=== PATIENT | female | born 1980 | race Caucasian/White ===

== ENCOUNTER 2016-09-18 09:41 | Inpatient (IN) | payer MEDICAID ==
[2016-09-18] VITALS (24 sets, daily range): BP systolic 98–115; BP diastolic 56–69; PULSE 69–88; RESP 16–18; TEMP 97.7–98.1; O2SAT 98–100
[~2016-09-18 09:41] MED LIST: ABRE10CR TOP; DOCO1CAP2; FAMC500T23 PO; IBUP600 PO; OXYC1SOL5 PO; PERI8.6T PO; PREN1TAB30
[2016-09-18] MEDS ORDERED: LACTATED RINGER'S 1000 ML INJ 1,000 ML IV ONE (10:28)
[2016-09-18 10:41] LABS: AUTOMATED NEUTROPHIL # 9.4 TH/MM3 (1.8-7.7); BASOPHIL # 0.1 TH/MM3 (0-0.2); BASOPHIL % 0.4 % (0.0-2.0); EOSINOPHIL % 0.3 % (0.0-4.0); HEMATOCRIT 36.5 % (35.0-46.0); HEMO FLAGS DIFF FINAL; LYMPH % 20.2 % (9.0-44.0); LYMPHOCYTE # 2.6 TH/MM3 (1.0-4.8); MEAN CELL VOLUME 85.4 FL (80.0-100.0); MEAN CORPUSCULAR HEMOGLOBIN 28.4 PG (27.0-34.0); MEAN CORPUSCULAR HGB CONC 33.3 % (32.0-36.0); MONO % 5.8 % (0.0-8.0); NEUT % 73.3 % (16.0-70.0); PLATELET COUNT 203 TH/MM3 (150-450); RED BLOOD COUNT 4.28 MIL/MM3 (4.00-5.30); RED CELL DISTRIBUTION WIDTH 14.4 % (11.6-17.2); WHITE BLOOD COUNT 12.8 TH/MM3 (4.0-11.0)
[2016-09-18 10:42] LABS: BLOOD, URINE NEG (NEG); GLUCOSE,URINE NEG (NEG); KETONE, URINE NEG (NEG); MUCUS URINE FEW /lpf (OCC); NITRITE,URINE NEG (NEG); SQUAMOUS EPITHELIAL CELL URINE 1 /hpf (0-5); URINE COLOR YELLOW (YELLW/STRAW)
[2016-09-18 10:43] LABS: COMMENT (UR) CULT NOT INDICATED; CULTURE IF INDICATED CULT NOT INDICATED
--- NOTE | 2016-09-18 10:53 | HHI.HP ---
HPI Chief Complaint Repeat . Date Seen: Sep 18, 2016 Travel History International Travel<30 Days: No Contact w/Intl Traveler<30Days: No History of Present Illness HPI Patient is a 36-year-old at 391/7 weeks gestation who presents today for repeat . She denies any vaginal bleeding or discharge. No pressure leaking of fluid. Positive movement. History Past Medical History Narrative Medical Mitral valve prolapse Obstetric History Obstetric History for indication in 2014 Past Surgical History Narrative Surgical Family History Family History: Negative Social History Alcohol Use: No Tobacco Use: No Substance Abuse: No Allergies-Medications (Allergen,Severity, Reaction): Coded Allergies: Latex (Verified Allergy, Severe, 02/26/15) Biaxin (Verified Allergy, Unknown, nausea, 02/26/15) Home Meds Active Scripts Docosanol (Abreva)Cream Tube1 Appl TOP 5 TIMES A DAY #1 TUBE Prov:Justina Ortega MD R2 03/02/15 Sennosides-Docusate Sodium (Jory-Colace 8.6-50 mg)1 Tab Tab2 Tab PO Q12H PRN ( CONSTIPATION) #30 TAB Ref 0 Prov:Theresa Allen MD R3 03/02/15 Oxycodone W/ Acetaminophen (Oxycodone/Acetaminophen 5-325 mg/5Ml)1 Tab Tab1 Tab PO Q4H PRN (PAIN SCALE 6 TO 10) #30 TAB Ref 0 Prov:Theresa Allen MD R3 03/02/15 Ibuprofen (Motrin 600 Mg Tab)600 Mg [id number] Mg PO Q6H PRN ( CRAMPING) # 30 TAB Ref 0 Prov:Theresa Allen MD R3 03/02/15 Reported Medications Famciclovir (Famvir)500 Mg [id number] Mg PO 02/26/15 Docosahexaenoic Acid (Dha)200 Mg Cap 02/26/15 Vit W/ Ferrous Fumara ( Vitamin 27-0.8 mg)1 Tab Tab 02/26/15 Review of Systems Except as stated in HPI: all other systems reviewed are Neg General / Constitutional: No: Fever, Chills Eyes: No: Blurred Vision, Visual changes HENT: No: Headaches Cardiovascular: No: Chest Pain or Discomfort Respiratory: No: Short of Breath Gastrointestinal: No: Abdominal Pain Genitourinary: No: Pelvic Pain, Discharge, Vaginal Bleeding Musculoskeletal: No: Edema Psychiatric: No: Substance Abuse Physical Exam Narrative GENERAL: Well-nourished, well-developed patient. SKIN: Warm and dry. HEAD: Normocephalic and atraumatic. EYES: No scleral icterus. No injection or drainage. ENT: No nasal drainage noted. Mucous membranes pink. Airway patent. NECK: Supple, trachea midline. No JVD. CARDIOVASCULAR: Regular rate and rhythm without murmurs, gallops, or rubs. RESPIRATORY: Breath sounds equal bilaterally. No accessory muscle use. ABDOMEN/GI: Abdomen soft, non-tender, bowel sounds present, no rebound, no guarding Gravid to 39 weeks size GENITOURINARY: External Genitalia: intact and normal in appearance Membranes: intact Presentation: Vertex Uterine Contractions: q2-4min FHT's: Category: I Baseline: 120 Reactive: + Variability: moderate Decels: none EXTREMITIES: No cyanosis or edema. BACK: Nontender without obvious deformity. No CVA tenderness. NEUROLOGICAL: Awake and alert. Motor and sensory grossly within normal limits. Normal speech. Data Data Vital Signs Reviewed: Yes Orders Admit To Inpatient (09/18/16 ) Code Status (09/18/16 10:28) Vital Signs (Adult) .ON ADMISSION (09/18/16 10:28) Activity Oob Ad Carolyn (09/18/16 10:28) Heart (09/18/16 10:28) Urinary Catheter Management DYLON.Q8H (09/18/16 10:28) ^ Preps (09/18/16 10:28) Scd / Naveen / Foot Pump DYLON.QSHIFT (09/18/16 10:28) ^ Ultrasound For Locatio (09/18/16 10:28) Diet Npo (09/18/16 Lunch) Lactated Ringer's 1000 Ml Inj (Lr 1000 M (09/18/16 10:28) Lactated Ringer's 1000 Ml Inj (Lr 1000 M (09/18/16 10:58) Citric Acid-Sodium Citrate Liq (Bicitra (09/18/16 12:00) Type And Screen (09/18/16 10:28) Complete Blood Count With Diff (09/18/16 10:28) Urinalysis - C+S If Indicated (09/18/16 10:28) Cefazolin Inj (Ancef Inj) (09/18/16 11:30) Inpatient Certification (09/18/16 ) Specimen To Be Collected PRN (09/18/16 10:28) Labs Laboratory Tests Test 09/18/16 10:09 White Blood Count 12.8 Red Blood Count 4.28 Hemoglobin 12.2 Hematocrit 36.5 Mean Corpuscular Volume 85.4 Mean Corpuscular Hemoglobin 28.4 Mean Corpuscular Hemoglobin 33.3 Concent Red Cell Distribution Width 14.4 Platelet Count 203 Mean Platelet Volume 8.0 Neutrophils (%) (Auto) 73.3 Lymphocytes (%) (Auto) 20.2 Monocytes (%) (Auto) 5.8 Eosinophils (%) (Auto) 0.3 Basophils (%) (Auto) 0.4 Neutrophils # (Auto) 9.4 Lymphocytes # (Auto) 2.6 Monocytes # (Auto) 0.7 Eosinophils # (Auto) 0.0 Basophils # (Auto) 0.1 CBC Comment DIFF FINAL Differential Comment Urine Color YELLOW Urine Turbidity CLEAR Urine pH 8.0 Urine Specific Alexander 1.011 Urine Protein NEG Urine Glucose (UA) NEG Urine Ketones NEG Urine Occult Blood NEG Urine Nitrite NEG Urine Bilirubin NEG Urine Urobilinogen LESS THAN 2.0 Urine Leukocyte Esterase NEG Urine RBC LESS THAN 1 Urine WBC 1 Urine Squamous Epithelial 1 Cells Urine Mucus FEW Microscopic Urinalysis Comment CULT NOT INDICATED Assessment/Plan Assessment and Plan 36 year old at 39-1/7 weeks gestation. 1. IUP- Category I tracing, reassuring. 2. Repeat . 3. GBS negative. dw Justina Carrasco MD R2 Sep 18, 2016 10:53
[2016-09-18] MEDS ORDERED: LACTATED RINGER'S 1000 ML INJ 1,000 ML IV SCH ×2 (10:58→18:20)
[2016-09-18] MEDS ORDERED: OXYTOCIN 10 UNIT/ML AMP ONE (11:57)
[2016-09-18] MEDS ORDERED: CITRIC ACID-SODIUM CITRATE LIQ 30 ML UDC PO SCH (12:00)
[2016-09-18] MEDS ORDERED: oxyCODONE/ACETAMINOPHEN 5 MG/325 MG TAB PO PRN (13:30)
[2016-09-18] MEDS ORDERED: OXYCODONE PO PRN (13:30)
[2016-09-18] MEDS ORDERED: SODIUM CHLORIDE 0.9% FLUSH 10 ML FLUSH IV FLUSH PRN (13:30)
[2016-09-18] MEDS ORDERED: OXYTOCIN 30 UNITS-500ML PREMIX 500 ML IV ONE ×2 (13:30)
[2016-09-18] MEDS ORDERED: ACETAMINOPHEN PO PRN (13:30)
[2016-09-18] MEDS ORDERED: [UNRECOGNIZED DRUG - OTHER] PO PRN (13:30)
[2016-09-18] MEDS ORDERED: ONDANSETRON HCL 4 MG/2 ML VIAL IV PUSH PRN (13:30)
[2016-09-18] MEDS ORDERED: ZOLPIDEM TARTRATE 5 MG TAB PO PRN (13:30)
[2016-09-18] MEDS ORDERED: SIMETHICONE 80 MG CHEWABLE TAB PO PRN (13:30)
[2016-09-18] MEDS ORDERED: MORPHINE SULFATE PF 5 MG/10 ML VIAL ONE (13:33)
[2016-09-18] MEDS ORDERED: fentaNYL CITRATE 250 MCG/5 ML AMP ONE (13:33)
[2016-09-18] MEDS ORDERED: OXYTOCIN 30 UNITS-500ML PREMIX 500 ML ONE (14:14)
[2016-09-18] MEDS ORDERED: EPIDURAL-DO NOT ADMINISTER ANTICOAGULANTS PRN (15:45)
[2016-09-18] MEDS ORDERED: EPIDURAL-NALOXONE HCL 0.4 MG/ML AMP IV PRN (15:45)
[2016-09-18] MEDS ORDERED: EPIDURAL-DIPHENHYDRAMINE HCL 50 MG CAP PO PRN (15:45)
[2016-09-18] MEDS ORDERED: EPIDURAL-DIPHENHYDRAMINE HCL 50 MG/ML VIAL IV PUSH PRN (15:45)
[2016-09-18] MEDS ORDERED: EPIDURAL-NO SYSTEMIC NARCOTICS PRN (15:45)
[2016-09-18] MEDS: IBUPROFEN 600 MG TAB PO PRN ×2 (17:43→22:21)
[2016-09-18] MEDS ORDERED: SODIUM CHLORIDE 0.9% FLUSH 10 ML FLUSH IV FLUSH SCH (21:00)
[2016-09-18] MEDS: oxyCODONE/ACETAMINOPHEN 5 MG/325 MG TAB PO PRN (22:20)
[2016-09-18] MEDS ORDERED: OXYTOCIN 30 UNITS-500ML PREMIX 500 ML IV PRN (23:30)
[2016-09-19 00:55] VITALS: BP 98/59; PULSE 69; RESP 18; TEMP 98
[2016-09-19] MEDS: oxyCODONE/ACETAMINOPHEN 5 MG/325 MG TAB PO PRN ×6 (01:37→22:22)
[2016-09-19 04:55] VITALS: BP 91/52; PULSE 71; RESP 16; TEMP 98.3
[2016-09-19] MEDS: DOCUSATE SODIUM 50 MG/SENNA 8.6 MG TAB PO PRN ×2 (05:01→19:44)
[2016-09-19] MEDS: IBUPROFEN 600 MG TAB PO PRN ×3 (05:01→18:05)
[2016-09-19 05:55] LABS: AUTOMATED NEUTROPHIL # 10.6 TH/MM3 (1.8-7.7); BASOPHIL % 0.2 % (0.0-2.0); EOSINOPHIL # 0.1 TH/MM3 (0-0.4); EOSINOPHIL % 0.8 % (0.0-4.0); HEMATOCRIT 27.9 % (35.0-46.0); HEMO FLAGS DIFF FINAL; LYMPHOCYTE # 2.5 TH/MM3 (1.0-4.8); MEAN CELL VOLUME 85.4 FL (80.0-100.0); MEAN CORPUSCULAR HEMOGLOBIN 29.1 PG (27.0-34.0); MEAN CORPUSCULAR HGB CONC 34.1 % (32.0-36.0); MONO % 5.9 % (0.0-8.0); NEUT % 75.1 % (16.0-70.0); PLATELET COUNT 159 TH/MM3 (150-450); RED BLOOD COUNT 3.27 MIL/MM3 (4.00-5.30); RED CELL DISTRIBUTION WIDTH 14.1 % (11.6-17.2); WHITE BLOOD COUNT 14.1 TH/MM3 (4.0-11.0)
--- NOTE | 2016-09-19 07:54 | HHI.OB ---
Subjective Post Operative Day: 1 Remarks Doing well, Pain is well controlled. Bleeding is good. Objective Vitals/I&O Vital Signs Date Time Temp Pulse Resp B/P Pulse Ox O2 Delivery O2 Flow Rate FiO2 09/19/16 04:55 98.3 71 16 91/52 09/19/16 00:55 98.0 09/19/16 00:55 69 18 98/59 09/18/16 19:55 97.9 69 18 114/67 09/18/16 18:55 16 09/18/16 17:45 16 09/18/16 16:55 16 09/18/16 15:13 97.7 81 18 09/18/16 15:13 98/69 09/18/16 14:48 98.1 09/18/16 14:47 97.8 09/18/16 14:38 100 09/18/16 14:38 73 16 109/58 09/18/16 14:26 72 16 112/60 09/18/16 14:26 99 09/18/16 14:26 98 09/18/16 14:26 100 09/18/16 14:09 77 16 113/62 100 09/18/16 13:54 74 16 110/59 100 09/18/16 13:38 98.0 09/18/16 13:38 16 09/18/16 13:38 86 18 115/56 99 09/18/16 11:15 87 09/18/16 11:10 84 09/18/16 11:05 78 09/18/16 11:00 88 09/18/16 10:55 76 09/18/16 10:50 80 09/18/16 10:45 79 09/18/16 10:40 82 09/18/16 10:35 78 09/18/16 10:30 85 09/18/16 10:25 79 09/18/16 10:20 84 Result Diagram: 09/19/16 0539 Objective Remarks GENERAL: Well-nourished, well-developed patient. CARDIOVASCULAR: Regular rate and rhythm without murmurs, gallops, or rubs. RESPIRATORY: Breath sounds equal bilaterally. No accessory muscle use. ABDOMEN/GI: Abdomen soft, non-tender, bowel sounds present. Incision: Clean, dry and intact. Fundus: Firm, non-tender at umbilicus. GENITOURINARY: Light to moderate bleeding. EXTREMITIES: No cyanosis or edema, non-tender, without signs of DVT. Medications and IVs Current Medications Medications (Trade) Dose Ordered Sig/Cecilia Route Start Time Stop Time Status Last Admin (Lr 1000 ml Inj) 1,000 ml @ 100 mls/hr Q10H IV 09/18/16 18:20 09/19/16 14:19 09/18/16 20:32 (NS Flush) 2 ml BID IV FLUSH 09/18/16 21:00 (NS Flush) 2 ml UNSCH PRN IV FLUSH 09/18/16 13:30 (Mylicon Chew) 80 mg QID PRN PO 09/18/16 13:30 (Motrin) 600 mg Q6H PRN PO 09/18/16 13:30 09/19/16 05:01 (Percocet 5-325 Mg) 1 tab Q4H PRN PO 09/18/16 13:30 09/19/16 05:21 (Percocet 5-325 Mg) 2 tab Q4H PRN PO 09/18/16 13:30 (Jory-Colace) 2 tab Q12H PRN PO 09/18/16 13:30 09/19/16 05:01 (Ambien) 5 mg HS PRN PO 09/18/16 13:30 (M-M-R Ii Inj) 0.5 ml ONCE ONCE SQ 09/19/16 16:00 09/19/16 16:01 (Boostrix Inj) 0.5 ml ONCE ONCE IM 09/19/16 16:00 09/19/16 16:01 (Zofran Inj) 4 mg Q6H PRN IV PUSH 09/18/16 13:30 Miscellaneous Information NO SYSTEMIC NARCOTICS TO BE GIVEN FO... UNSCH PRN .XX 09/18/16 15:45 09/19/16 15:44 (Narcan Inj) 0.4 mg UNSCH PRN IV 09/18/16 15:45 09/19/16 15:44 (Benadryl Inj) 25 mg Q6H PRN IV PUSH 09/18/16 15:45 09/19/16 15:44 (Benadryl) 50 mg Q6H PRN PO 09/18/16 15:45 09/19/16 15:44 Miscellaneous Information ALL NURSING DEPARTMENTS UNSCH PRN .XX 09/18/16 15:45 09/19/16 15:44 Assessment/Plan Assessment and Plan POD #1 Repeat c/s yesterday. Routine care. Stuart Carey MD Sep 19, 2016 07:54
[2016-09-19] MEDS ORDERED: IBUP-232 PO (07:56)
[2016-09-19] MEDS ORDERED: OXYC1TAB63 PO (07:56)
--- NOTE | 2016-09-19 09:12 | HHI.DCPOC ---
Discharge Care Plan Diagnosis: (1) S/P repeat low transverse (2) Anemia Your Health Problems Are: delivery Report Symptoms to Your Doctor -Temperature above 100.5 degrees -Redness, of incision or excessive or foul smelling drainage -Unusual pain or calf pain -Increased vaginal bleeding -Painful or difficulty urinating -Feelings of extreme sadness or anxiety after 2 weeks Goals to Promote Your Health * To prevent worsening of your condition and complications * To maintain your health at the optimal level Directions to Meet Your Goals Take your medications as prescribed Follow your dietary instruction Follow activity as directed Ensure plenty of rest for recovery Drink fluids for hydration Keep your appointments as scheduled Take your immunizations and boosters as scheduled If your symptoms worsen call your PCP, if no PCP go to Urgent Care Center or Emergency Room Smoking is Dangerous to Your Health. Avoid second hand smoke Call the 24-hour crisis hotline for domestic abuse at Sophia Edgar Sep 19, 2016 09:12
[2016-09-19 09:20] VITALS: BP 103/63; PULSE 67; RESP 18; TEMP 98.1
--- NOTE | 2016-09-19 09:41 | MP ---
cc: CLAUDIA PETERSON,CELI Mcfadden MD DATE OF SURGERY 09/18/2016 PREOPERATIVE DIAGNOSES 1. Intrauterine at 39+ weeks 2. Previous section. 3. Desires repeat. POSTOPERATIVE DIAGNOSES 1. Intrauterine at 39+ weeks 2. Previous section. 3. Desires repeat. PROCEDURE Repeat low transverse section and excision of a keloid scar. ANESTHESIA Spinal. SURGEON Stuart Peterson MD COSURGEON Maria A Ortega MD R3 FINDINGS Baby's weight was 7 pounds, 12 ounces. Male. Apgars 9 and 9. Normal uterus. Normal tubes. Normal ovaries. Normal posterior and anterior cul-de-sac. COMPLICATIONS None. COUNTS Correct. ESTIMATED BLOOD LOSS 600 cc. FLUIDS Crystalloids. CONDITION The patient tolerated the procedure well, went to the recovery room in good condition. PROCEDURE IN DETAIL The patient was taken to the operating room identified by name band and verbally. She was given a spinal anesthetic. A Farias catheter was inserted. She was prepped and draped for section. The old Pfannenstiel incision was removed and excised completely and the incision was taken down to the fascia. The fascia was taken off the rectus muscle by blunt and sharp dissection. The peritoneum was entered under direct vision without complication. The incision was extended with care to avoid the urinary bladder. A bladder blade was placed and a bladder flap created over the lower uterine segment which was well-developed. The uterus was then scored in a transverse manner along the lower uterine segment and taken down in the midline until the uterine cavity was entered. The incision was extended with the surgeon's fingers. The vertex was grasped and delivered through the incision without difficulty. The hypopharynx and nasopharynx were suctioned. The remainder of the infant was delivered. The cord was doubly clamped and cut and the infant handed to the resuscitation team that was present. Cord blood was obtained. The placenta was delivered manually without difficulty. The uterus was curettaged twice with a wet lap. The uterine incision was repaired with 2-0 Vicryl a running locking fashion, the second layer imbricating the first. The cul-de-sac and gutters were cleaned of blood and debris with a large amount of irrigation. The uterus was delivered back into the abdomen. The incision was again inspected and was hemostatic. The rectus muscles were reapproximated with 0 Vicryl in an interrupted fashion. The fascia was repaired with 0 Vicryl from lateral to midline bilaterally in a running fashion. The subcutaneous tissue was repaired with 3-0 Vicryl. The skin was repaired with 4-0 Monocryl in a subcuticular manner. Steri-Strips were applied. The wound was sterilely dressed. She tolerated the procedure well and went to the recovery room in good condition. R. MD GONZALO Huitron/DANA /1:22 PM /9:39 AM
[2016-09-19] MEDS ORDERED: MEASLES, MUMPS, RUBELLA VACCINE 0.5 ML VIAL SQ ONE (16:00)
[2016-09-19] MEDS ORDERED: DIPHTH/TETANUS/ACEL PERTUSSIS (BOOSTER) 0.5 ML VIAL/PFS IM ONE (16:00)
[2016-09-19 19:30] VITALS: BP 100/52; PULSE 66; RESP 18; TEMP 98.2
[2016-09-19] MEDS ORDERED: ONDANSETRON ODT 4 MG TAB PO PRN (23:45)
[2016-09-20] MEDS: IBUPROFEN 600 MG TAB PO PRN ×2 (02:18→07:16)
[2016-09-20] MEDS: oxyCODONE/ACETAMINOPHEN 5 MG/325 MG TAB PO PRN ×2 (02:19→09:24)
--- NOTE | 2016-09-20 06:44 | HHI.OB ---
Subjective Remarks Postoperative day # 2 AFVSS overnight. Incision not draining. Decreased lochia. Denies dysuria. Appetite good. No nausea or vomiting. Positive flatus/ bowel movement. Ambulating well. Denies calf pain or shortness of breath. She is doing well this morning. (Justina Ortega MD R2) Objective Vitals/I&O Vital Signs Date Time Temp Pulse Resp B/P Pulse Ox O2 Delivery O2 Flow Rate FiO2 09/19/16 19:30 98.2 66 18 100/52 09/19/16 09:20 98.1 67 18 103/63 (Justina Ortega MD R2) Result Diagram: 09/19/16 0539 Objective Remarks GENERAL: Well-nourished, well-developed patient. CARDIOVASCULAR: Regular rate and rhythm without murmurs, gallops, or rubs. RESPIRATORY: Breath sounds equal bilaterally. No accessory muscle use. ABDOMEN/GI: Abdomen soft, non-tender, bowel sounds present. Incision: Clean, dry and intact. Fundus: Firm, non-tender at umbilicus. GENITOURINARY: Light to moderate bleeding. EXTREMITIES: No cyanosis or edema, non-tender, without signs of DVT. Medications and IVs Current Medications Medications (Trade) Dose Ordered Sig/Cecilia Route Start Time Stop Time Status Last Admin (NS Flush) 2 ml BID IV FLUSH 09/18/16 21:00 (NS Flush) 2 ml UNSCH PRN IV FLUSH 09/18/16 13:30 (Mylicon Chew) 80 mg QID PRN PO 09/18/16 13:30 (Motrin) 600 mg Q6H PRN PO 09/18/16 13:30 09/20/16 02:18 (Percocet 5-325 Mg) 1 tab Q4H PRN PO 09/18/16 13:30 09/20/16 02:19 (Percocet 5-325 Mg) 2 tab Q4H PRN PO 09/18/16 13:30 (Jory-Colace) 2 tab Q12H PRN PO 09/18/16 13:30 09/19/16 19:44 (Ambien) 5 mg HS PRN PO 09/18/16 13:30 (Zofran Inj) 4 mg Q6H PRN IV PUSH 09/18/16 13:30 (Zofran Odt) 4 mg Q4H PRN PO 09/19/16 23:45 (Justina Ortega MD R2) Assessment/Plan Assessment and Plan 36 y/o female who is POD# 2 s/p repeat . -Continue routine care. -Percocet and Motrin PRN pain. -Encouraged OOB. Advised pelvic rest for 6 wks. Will need a f/u appt. in 1 wk for incision check. -Discharge home today. chavo Roman (Justina Ortega MD R2) Attending Attestation The exam, history, and the medical decision-making described in the above note were completed with the assistance of the resident provider. I reviewed and agree with the findings presented. I attest that I had a [id number] encounter with the patient on the same day, and personally performed and documented my assessment and findings in the medical record. (Heriberto Roman MD) Justina Ortega MD R2 Sep 20, 2016 06:44 Heriberto Roman MD Sep 20, 2016 08:54
[2016-09-20 07:45] VITALS: BP 99/62; PULSE 70; RESP 18; TEMP 98.7
--- NOTE | 2016-09-20 09:12 | HHI.OB ---
Subjective Post Operative Day: 3 Objective Vitals/I&O Vital Signs Date Time Temp Pulse Resp B/P Pulse Ox O2 Delivery O2 Flow Rate FiO2 09/19/16 19:30 98.2 66 18 100/52 09/19/16 09:20 98.1 67 18 103/63 Result Diagram: 09/19/16 0539 Objective Remarks GENERAL: Well-nourished, well-developed patient. CARDIOVASCULAR: Regular rate and rhythm without murmurs, gallops, or rubs. RESPIRATORY: Breath sounds equal bilaterally. No accessory muscle use. ABDOMEN/GI: Abdomen soft, non-tender, bowel sounds present. Incision: Clean, dry and intact, STERI STRIPS Fundus: Firm, non-tender at umbilicus. GENITOURINARY: Light to moderate bleeding. EXTREMITIES: No cyanosis or edema, non-tender, without signs of DVT. Medications and IVs Current Medications Medications (Trade) Dose Ordered Sig/Cecilia Route Start Time Stop Time Status Last Admin (NS Flush) 2 ml BID IV FLUSH 09/18/16 21:00 (NS Flush) 2 ml UNSCH PRN IV FLUSH 09/18/16 13:30 (Mylicon Chew) 80 mg QID PRN PO 09/18/16 13:30 (Motrin) 600 mg Q6H PRN PO 09/18/16 13:30 09/20/16 07:16 (Percocet 5-325 Mg) 1 tab Q4H PRN PO 09/18/16 13:30 09/20/16 02:19 (Percocet 5-325 Mg) 2 tab Q4H PRN PO 09/18/16 13:30 (Jory-Colace) 2 tab Q12H PRN PO 09/18/16 13:30 09/19/16 19:44 (Ambien) 5 mg HS PRN PO 09/18/16 13:30 (Zofran Inj) 4 mg Q6H PRN IV PUSH 09/18/16 13:30 (Zofran Odt) 4 mg Q4H PRN PO 09/19/16 23:45 Assessment/Plan Problem List: (1) Anemia Plan: WILL TREAT WITH DAILY IRON POST (2) S/P repeat low transverse Plan: ROUTINE Assessment and Plan 36 y/o female who is POD# 3 s/p repeat . pt doing well pain well managed with pain medication. denies sob, chest pain or dizziness ambulates in room without difficulty routine care Discharge Planning dc home today oSphia Edgar Sep 20, 2016 09:12
--- NOTE | 2016-09-20 09:15 | HHI.DS ---
Admission Date Sep 18, 2016 at 09:41 Discharge Date: Sep 20, 2016 Admitting Diagnosis term previous c section Diagnosis: (1) S/P repeat low transverse Diagnosis: Principal (2) Anemia Diagnosis: Secondary Delivery Date: Sep 18, 2016 : Repeat : Male Brief History Patient is a 36-year-old at 391/7 weeks gestation who presents today for repeat . She denies any vaginal bleeding or discharge. No pressure leaking of fluid. Positive movement. Hospital Course previous c section term repeat c section routine Pt Condition on Discharge: Good Discharge Disposition: Discharge Home Discharge Instructions Diet Instructions: As Tolerated, No Restrictions Activities You Can Perform: Pelvic Rest Follow up Referrals: SECRETARY ADMINISTRATIVE ASSISTANT - 1 Week @ [facility] [place] New Medications: Ibuprofen (Ibuprofen) 600 Mg Tab 600 MG PO Q6H Pain Management #30 Ref 1 TAB Oxycodone-Acetaminophen (Oxycodone-Acetaminophen) 5-325 mg Tab 1 TAB PO Q4H moderate pain #30 TAB Continued Medications: Docosahexaenoic Acid (Dha) 200 Mg Cap Docosanol (Abreva) Cream Tube 1 APPL TOP 5 TIMES A DAY #1 TUBE Vit W/ Ferrous Fumara ( Vitamin 27-0.8 mg) 1 Tab Tab Sennosides-Docusate Sodium (Jory-Colace 8.6-50 mg) 1 Tab Tab 2 TAB PO Q12H PRN CONSTIPATION #30 Ref 0 TAB Discontinued Medications: Famciclovir (Famvir) 500 Mg Tab 500 MG PO TAB Ibuprofen (Motrin 600 Mg Tab) 600 Mg Tab 600 MG PO Q6H PRN CRAMPING #30 Ref 0 TAB Oxycodone W/ Acetaminophen (Oxycodone/Acetaminophen 5-325 mg/5Ml) 1 Tab Tab 1 TAB PO Q4H PRN PAIN SCALE 6 TO 10 #30 Ref 0 TAB Sophia Edgar Sep 20, 2016 09:15
== END 2016-09-20 11:45 | disposition home or self-care (01) | DRG 765 ==
LOC: H2EB 09:41 → H1EA 15:00
PROVIDERS: ADMIT Obstetrics & Gynecology; ATTEND Obstetrics & Gynecology
PROC: 10D00Z1 Extraction of Products of Conception, Low, Open Approach (ICD-10-PCS; principal; 2016-09-18)
PROC: 0HB7XZZ Excision of Abdomen Skin, External Approach (ICD-10-PCS; 2016-09-18)
DX: O34.219 Maternal care for unspecified type scar from previous cesarean delivery (principal); O99.413 Diseases of the circulatory system complicating pregnancy, third trimester; O90.81 Anemia of the puerperium; D64.9 Anemia, unspecified; O09.523 Supervision of elderly multigravida, third trimester; L90.5 Scar conditions and fibrosis of skin; Z37.0 Single live birth; Z3A.39 39 weeks gestation of pregnancy
CPT/HCPCS: 59025; 81001; 85025; 86850; 86900; 86901; J0690; J2274; J2590; J3010; J7120